=== PATIENT | male | born 1955 | race African-American/Black ===

== ENCOUNTER 2022-06-16 04:15 | Day surgery (SDC) | payer OTHER ==
[2022-06-12 16:48] VITALS: BMI 30.4
[2022-06-16] MEDS ORDERED: MIDAZOLAM HCL 2 MG/2 ML SINGLE DOSE VIAL ONE (12:01)
[2022-06-16] MEDS ORDERED: ceFAZolin SODIUM 1 GM VIAL IVPB ONE (12:05)
[2022-06-16] MEDS ORDERED: ceFAZolin SODIUM 1 GM VIAL ONE ×2 (12:06)
[2022-06-16] MEDS ORDERED: ELECTROLYTE-148 SOLN 1,000 ML IV SCH (12:15)
[2022-06-16] MEDS ORDERED: PROPOFOL 20 ML ONE (12:19)
[2022-06-16 13:43] VITALS: RESP 18
[2022-06-16 13:45] VITALS: BP 125/71; PULSE 80; TEMP 97.3
== END 2022-06-16 13:55 | disposition home or self-care (01) ==
LOC: JASU-SURG 04:15
PROVIDERS: ATTEND Urology
PROC: 0TF3XZZ Fragmentation in Right Kidney Pelvis, External Approach (ICD-10-PCS; principal; 2022-06-16 12:30)
DX: N20.1 Calculus of ureter (principal)

== ENCOUNTER 2022-09-28 04:01 | Day surgery (SDC) | payer OTHER ==
[2022-09-24 18:33] VITALS: BMI 31.4
[2022-09-28] MEDS ORDERED: MIDAZOLAM HCL 2 MG/2 ML SINGLE DOSE VIAL ONE ×3 (13:47→14:51)
[2022-09-28] MEDS ORDERED: ceFAZolin SODIUM 1 GM VIAL ONE (14:10)
[2022-09-28] MEDS ORDERED: ceFAZolin SODIUM 1 GM VIAL IVPB ONE (14:14)
[2022-09-28] MEDS ORDERED: ONDANSETRON 4 MG/2 ML VIAL IVPUSH PRN (14:36)
[2022-09-28] MEDS ORDERED: oxyCODONE HCL 5 MG TABLET PO PRN (14:36)
[2022-09-28] MEDS ORDERED: LACTATED RINGERS SOLUTION 1,000 ML IV SCH (14:45)
[2022-09-28] MEDS: oxyCODONE HCL 5 MG TABLET PO PRN (20:53)
[2022-09-29] MEDS: oxyCODONE HCL 5 MG TABLET PO PRN (06:54)
[2022-09-29 10:06] VITALS: BP 145/77; PULSE 83; RESP 18; TEMP 98.3
[2022-10-02 15:07] LABS: CA OXALATE MONOHYDR. 100 % (.); SIZE 6x4 mm (.); WEIGHT 54 mg (.)
== END 2022-09-29 11:21 | disposition home or self-care (01) ==
LOC: JASUSAT 04:01 → JASU-SURG 04:01 → J7W 20:09 → JASUSAT 09-29 11:21
PROVIDERS: ATTEND Urology
PROC: 0VT08ZZ Resection of Prostate, Via Natural or Artificial Opening Endoscopic (ICD-10-PCS; principal; 2022-09-28 07:30)
PROC: 0TCB8ZZ Extirpation of Matter from Bladder, Via Natural or Artificial Opening Endoscopic (ICD-10-PCS; 2022-09-28 07:30)
DX: N40.0 Benign prostatic hyperplasia without lower urinary tract symptoms (principal); N21.0 Calculus in bladder; N32.89 Other specified disorders of bladder
CPT/HCPCS: 36415; 82360; 82962; 88300-TC; 88307-TC; 88342-TC; 94760